=== PATIENT | female | born 1960 | race African-American/Black ===

== ENCOUNTER 2024-07-13 18:16 | Emergency (ER) | payer OTHER, MEDICARE, MEDICAID, SELFPAY ==
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
[2024-07-13 18:48] VITALS: BP 177/109; PULSE 93; RESP 18; TEMP 36.2; O2SAT 97; BMI 45.9
[2024-07-13 23:40] VITALS: BP 162/103; PULSE 86; RESP 20; TEMP 36.4; O2SAT 97
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
[2024-07-14 01:41] VITALS: BP 162/103; PULSE 86; RESP 20; TEMP 36.4; O2SAT 97
== END 2024-07-14 01:42 | disposition home or self-care (01) ==
PROVIDERS: Emergency Provider Internal Medicine
DX: S16.1XXA Strain of muscle, fascia and tendon at neck level, initial encounter (principal); M25.512 Pain in left shoulder; M54.2 Cervicalgia; V43.12XA Car passenger injured in collision with other type car in nontraffic accident, initial encounter; Y93.9 Activity, unspecified; Y92.481 Parking lot as the place of occurrence of the external cause; Y99.8 Other external cause status
CPT/HCPCS: 73030; 99282; 99283

== ENCOUNTER → 2024-07-13 19:00 | Outpatient (BNV) | payer MEDICARE, MEDICAID, SELFPAY | PROVIDERS: Visit Provider Radiology Diagnostic Radiology | DX: M25.512 Pain in left shoulder (principal); Z04.3 Encounter for examination and observation following other accident | CPT/HCPCS: 73030 ==